=== PATIENT | male | born 1930 | race Caucasian/White ===

== ENCOUNTER 2019-07-28 06:55 | Day surgery (SDC) | payer MEDICARE ==
[~2019-07-28 06:55] MED LIST: CEFAZOLIN 2 Gram 2 GM/50 ML BAG IVPB ONE; CELECOXIB 100 MG CAPSULE PO ONE; FAMOTIDINE 20MG TABLET PO ONE; MECLIZINE 25 MG TABLET PO ONE; METOCLOPRAMIDE 10 MG TABLET PO ONE; VANCOMYCIN 1GM/200ML PREMIX 1 GM/200 ML PIGGYBACK IVPB ONE
[2019-07-28] MEDS ORDERED: DEXAMETHASONE 4 MG/ML 1ML VIAL IVP ONE (06:56)
[2019-07-28] MEDS ORDERED: MIDAZOLAM HCL 2MG/2ML VIAL IV ONE (06:56)
[2019-07-28] MEDS ORDERED: LIDOCAINE 2% MDV (20MG/ML) 20ML VIAL IV ONE (06:56)
[2019-07-28] MEDS ORDERED: ROPIVACAINE HCL (NAROPIN) /PF 5MG/ML 20ML VIAL IV ONE (06:56)
[2019-07-28] MEDS ORDERED: PROPOFOL 10 MG/ML VIAL IV ONE (06:56)
[2019-07-28] MEDS ORDERED: 0.9 % SODIUM CHLORIDE 1000ML 1,000 ML IV ONE ×2 (07:40→10:17)
[2019-07-28 08:07] LABS: ANTIBODY SCREEN NEGATIVE (NEGATIVE)
[2019-07-28 08:40] LABS: ABO GROUP A; RH TYPE NEGATIVE
[2019-07-28] MEDS ORDERED: BUPIVACAINE 0.5% W/EPI MPF 30 ML VIAL SQ ONE (09:27)
[2019-07-28] MEDS ORDERED: TRANEXAMIC ACID 1,000 MG/10 ML ML IU ONE (09:28)
[2019-07-28] MEDS ORDERED: TRANEXAMIC ACID 1,000 MG/10 ML ML IV ONE (09:28)
[2019-07-28] MEDS ORDERED: ACETAMINOPHEN W/ CODEINE 300MG/60MG TABLET PO PRN ×2 (10:19)
[2019-07-28] MEDS ORDERED: NALOXONE 0.4 MG/1 ML VIAL IVP PRN (10:19)
[2019-07-28] MEDS ORDERED: MAGNESIUM HYDROXIDE 30 ML UDC PO PRN (10:19)
[2019-07-28] MEDS ORDERED: ACETAMINOPHEN 325 MG TAB PO PRN (10:19)
[2019-07-28] MEDS ORDERED: ONDANSETRON HCL IV 4 MG/2 ML VIAL IVP PRN (10:19)
[2019-07-28] MEDS ORDERED: BISACODYL 10 MG SUPP RC PRN (10:19)
[2019-07-28] MEDS ORDERED: TRAMADOL HCL 50 MG TABLET PO PRN (10:19)
[2019-07-28] MEDS ORDERED: DIPHENHYDRAMINE HCL 25 MG CAPSULE PO PRN (10:19)
[2019-07-28] MEDS ORDERED: ZOLPIDEM TARTRATE 5 MG TABLET PO PRN (10:19)
[2019-07-28] MEDS ORDERED: AL HYDROX/MAG HYDROX 30ML UD PO PRN (10:19)
[2019-07-28] MEDS ORDERED: KETOROLAC 30 MG/ML VIAL IVP ONE (10:19)
[2019-07-28] MEDS ORDERED: HYDROMORPHONE HCL 2 MG/ML VIAL IM PRN (10:19)
[2019-07-28] MEDS ORDERED: HYDROCODONE/APAP 5/325MG TABLET PO PRN ×2 (10:19)
[2019-07-28] MEDS ORDERED: FLUTICASONE PROPIONATE 50MCG NASAL 16 GM BTL PRN (11:09)
[2019-07-28] MEDS ORDERED: LORATADINE 10 MG TABLET PO PRN (11:09)
[2019-07-28] MEDS ORDERED: CALCIUM CARBONATE 500 MG TAB.CHEW PO PRN (11:10)
[2019-07-28] MEDS ORDERED: POTASSIUM CHLORIDE/D5-0.9%NACL 20 MEQ/1,000 ML BAG IV SCH (11:15)
[2019-07-28] MEDS: 0.9 % SODIUM CHLORIDE 1000ML 1,000 ML IV SCH ×2 (11:44→23:30)
--- NOTE | 2019-07-28 14:33 | Rehab Evaluation ---
Patient Information - Patient Information Diagnosis: DJD R knee Ordered Treatment: PT Evaluate and Treat Status: Initial Evaluation Surgery: Yes (RTKA) Date of Surgery: 07/28/19 Past Medical/Surgical Hx: PAST MEDICAL/SURGICAL HISTORY Past Surgical History LTKA THOMAS HERNIA REPAIRS LUMBAR SX X'S 2 CATARACTS C SCOPES RIGHT RTC REPAIR PMH - Respiratory Hx Respiratory Disorders Yes Comment: ALLERGIES PMH - Cardiovascular Hx Cardiovascular Disorders Yes Hx Hypertension Yes Exercise Tolerance Good PMH - Neuro Hx Neurological Disorders Yes Hx Dizziness Yes: AT TIMES R/T DEHYDRATION PMH - GI Hx Gastrointestinal Disorders Yes Hx Gastroesophageal Reflux Yes Hx Obstructive Bowel Yes: X'S 3 RESOLVED WITHOUT SX PMH - Hx Genitourinary Disorders Yes Hx Prostate Problems Yes: BPH 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 The patient 's bathroom is equipped with a tub/shower combination, grab bars, handheld shower, shower bench, elevated toilet, commode seat with handles. The patient has a front wheeled walker and single point cane.) Precautions: [place], Fall, Other (WBAT on the R LE) - Time With Patient Total Time Spent With Patient (Min): 30 Treatment Procedures: Detail (Initial Evaluation low complexity) Subjective Information - Subjective Information Per Patient (The patient had minimal complaints of R knee pain but did not rate his pain using 0-10 scale.) Objective Data - Mental Status Patient Orientation: Oriented x3 - Visual Perception Appears within normal limits for therapeutic activities - ROM Not within normal limits (R knee AROM was limited as to be expected s/p surgery. All other AROM was WNL.) - Strength/Tone Not within normal limits (LE strength was not formally tested however was functional ie: patient was able to lift R LE in and out of bed.) - Bed Mobility Independent (Independent with supine to and from sit transfer and scooting up in bed.) - Transfers Independent (The patient was independent with sit to and from stand transfer and toilet transfer with use of grab bar.) - Balance Balance Sitting: Good Balance Standing: Good - Sensation Intact - Gait Detail (The patient ambulated with front wheeled walker a distance of 120 feet x 1 WBAT on R LE with assist of one to handle equipment.) Therapy Assessment - Therapy Assessment Detail (The patient was independent with bed mobility, transfers and ambulation. Feel the patient will progress well with mobility.) Problem List - Problem List Physical Therapy Problem List: Detail (Limited R knee AROM and decreased R LE strength s/p surgery.) Goals - Goals Physical Therapy Goals: 1) The patient will ambulate on stairs using proper technique with supervision for safety. 2) The patient will be independent with TKA HEP. Prognosis - Prognosis Good Plan - Plan Physical Therapy Plan: 1-2 PT sessions for gait training on stairs and instruction in HEP.
[2019-07-28] MEDS: HYDROCODONE/APAP 10/325 TABLET PO PRN ×3 (14:51→22:09)
[2019-07-28] MEDS: CEFAZOLIN 2 Gram 2 GM/50 ML BAG IVPB SCH (18:11)
[2019-07-28] MEDS ORDERED: AMLODIPINE BESYLATE 5MG TAB PO SCH (22:00)
[2019-07-28] MEDS ORDERED: MAGNESIUM OXIDE 400 MG TABLET PO SCH (22:00)
[2019-07-28] MEDS: RANITIDINE HCL 150 MG TABLET PO SCH (22:08)
[2019-07-28] MEDS: DOCUSATE SODIUM 100 MG CAPSULE PO SCH (22:08)
[2019-07-29] MEDS: CEFAZOLIN 2 Gram 2 GM/50 ML BAG IVPB SCH ×2 (01:58→10:07)
[2019-07-29] MEDS: 0.9 % SODIUM CHLORIDE 1000ML 1,000 ML IV SCH ×2 (03:15→10:48)
[2019-07-29] MEDS: HYDROCODONE/APAP 10/325 TABLET PO PRN ×2 (06:30→11:58)
[2019-07-29 06:57] LABS: HEMOGLOBIN 9.1 gm/dl (14.0-18.0)
[2019-07-29 07:13] LABS: CREATININE 1.7 mg/dL (0.7-1.2)
--- NOTE | 2019-07-29 08:07 | Rehab Evaluation ---
Patient Information - Patient Information Diagnosis: DJD R knee Ordered Treatment: OT Evaluate and Treat Status: Initial Evaluation Surgery: Yes (RTKA) Date of Surgery: 07/28/19 Past Medical/Surgical Hx: PAST MEDICAL/SURGICAL HISTORY Past Surgical History LTKA THOMAS HERNIA REPAIRS LUMBAR SX X'S 2 CATARACTS C SCOPES RIGHT RTC REPAIR PMH - Respiratory Hx Respiratory Disorders Yes Comment: ALLERGIES PMH - Cardiovascular Hx Cardiovascular Disorders Yes Hx Hypertension Yes Exercise Tolerance Good PMH - Neuro Hx Neurological Disorders Yes Hx Dizziness Yes: AT TIMES R/T DEHYDRATION PMH - GI Hx Gastrointestinal Disorders Yes Hx Gastroesophageal Reflux Yes Hx Obstructive Bowel Yes: X'S 3 RESOLVED WITHOUT SX PMH - Hx Genitourinary Disorders Yes Hx Prostate Problems Yes: BPH 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 He and spouse share laundry tasks.) Social History: Detail (The patient lives with spouse in a 2 story house with 5 steps at the entrance and one handrail. He reports they stay on the main level. The patient 's bathroom is equipped with a tub/shower combination, multiple grab bars, handheld shower, shower bench, elevated toilet and commode seat with handles. The patient has a front wheeled walker and single point cane.) Precautions: [place], Fall, Other (WBAT on the R LE) - Time With Patient Total Time Spent With Patient (Min): 40 Treatment Procedures: Detail (OT eval low complexity) Subjective Information - Subjective Information Per Patient Objective Data - Pain Pain Present: Yes (03/27) - Mental Status Patient Orientation: Oriented x3 - Visual Perception Appears within normal limits for therapeutic activities (Pt wears glasses at all times.) - ROM Within normal limits ([place] UE AROM WNL) - Strength/Tone Within normal limits ([place] UE strength WNL) - Coordination Appears within normal limits for therapeutic activities - Bed Mobility Independent (Ind with supine to sit) - Transfers Independent (Ind with sit to stand from EOB) - Balance Balance Sitting: Good Balance Standing: Good - Sensation Intact - Gait Detail (Pt ambulating in hallway with 2 wheeled walker and SBA) - ADL's/IADL's Detail (Pt educated and able to demonstrate learning of modified LE dressing t echniques including doffing briefs and slipper socks and donning jay jay sock (with assist), boxer shorts, sweat pants and slip on shoes. Reviewed kitchen and shower safety and modifications as well as modified laundry techniques, pt verbalized understanding and reports spouse will be assist as needed.) Therapy Assessment - Therapy Assessment Detail (Pt is safe and Ind with modified LE dressing techniques) Problem List - Problem List Physical Therapy Problem List: Detail (Limited R knee AROM and decreased R LE strength s/p surgery.) Occupational Therapy Problem List: Detail (No current IP OT problems identified) Goals - Goals Physical Therapy Goals: 1) The patient will ambulate on stairs using proper technique with supervision for safety. 2) The patient will be independent with TKA HEP. Occupational Therapy Goals: No current IP OT goals identified. Prognosis - Prognosis Good Plan - Plan Physical Therapy Plan: 1-2 PT sessions for gait training on stairs and instruction in HEP. Occupational Therapy Plan: No further IP OT recommended. Thank you for this referral.
--- NOTE | 2019-07-29 08:31 | Operative Note ---
DATE OF SURGERY: 07/28/2019 PREOPERATIVE DIAGNOSIS: End-stage arthrosis of the right knee. POSTOPERATIVE DIAGNOSIS: End-stage arthrosis of the right knee. OPERATION: Cemented right total knee arthroplasty using [employer]orna II components with a size 6 cobalt chrome femur, a size 5 stemmed tibia baseplate, an 11 mm lipped tibial insert, and a 35 mm all-plastic patella. STAFF SURGEON: Chuck Herndon MD ANESTHESIA: Spinal. PREPARATION: Chloraprep. INDIVIDUAL CONSIDERATIONS: None. CLIN NURSE: Mrs. Jacquelyn Browne PROCEDURE: The patient was taken to the operating room, placed supine on the operating room table. He had a successful induction of a spinal anesthetic. The right lower extremity was prepped and draped in the usual fashion. The limb was elevated and tourniquet was inflated to 250 mmHg. The patient had a midline approach to the knee. Sharp dissection carried down through skin and subcutaneous tissue. Small veins were coagulated with a Bovie. A medial arthrotomy was performed. The patella was everted and the knee was flexed. The patient had exposed bone in the medial compartment with bone loss and in the patellofemoral compartment. Fat pad was resected, ACL was sacrificed, and provisional anterior meniscectomies were performed. The capsule was released from the medial proximal tibia. The initial femoral library assistant hole was then made freehand. The intramedullary femoral cutting jig was placed. It was cut in 7.0 degrees of valgus and adjusted for rotation and secured with pins for a 10 mm resection. The initial transverse cut was then made. The skin guide was placed in the anterior and posterior library assistant holes. It was found that a size 6 would be appropriate. The anterior and posterior cuts followed by chamfer cuts were made. Osteophytes removed, and a size 6 trial was placed and found to fit well. The tibia was brought forward, and the remainder of the meniscal remnants removed with a Bovie. The extraarticular tibial cutting jig was placed. It was cut in neutral with a 3-degree AP slope. Care was taken to adjust for rotation and flexion using the extraarticular alignment guide and bony landmarks. It was set for a 9 mm resection keyed off the high lateral side and secured with pins. When cutting the tibia, care was taken to preserve the PCL insertion on the tibia. After removing osteophytes, I could fit a size 5 baseplate. It was adjusted for rotation and secured with pins. With an 11 mm trial and femoral trial, there was excellent motion and stability, ligamentous balance, and rotation alignment were thought to be normal. Femoral library assistant holes were impacted and tri-flange tibial stamp was impacted, and these trial components were removed. The patient had a thick patella and roughly 9 mm of bone was removed freehand. I was easily able to fit a 35 patella. The 3 library assistant holes were drilled. The tourniquet was let down briefly to get bleeders posteriorly and then placed back up again. The knee was then thoroughly irrigated out with pulsatile Betadine and saline to remove any visual or palpable debris. Bony surfaces were then dried. A size 5 stemmed tibia baseplate was cemented into place followed by impaction of the 11 mm lipped tibial insert followed by cementing in the size 6 cobalt chrome femur followed by cementing in the 35 mm patella. The implant surfaces were compressed, excess cement was removed. After the cement had set, there was excellent motion and stability, ligamentous balance, rotation alignment, and patellofemoral tracking were normal. No lateral release was required. After thorough irrigation, tourniquet was let down. Hemostasis was obtained with a Bovie. The skin, subcu, and periosteum were infiltrated with 30 mL of 0.5% Marcaine with epinephrine. After irrigation, the capsule was then closed with a running #2 quill, subcu was closed in layers with running 0 quill, skin was closed with luis. The patient did receive 1 g of tranexamic acid preoperatively. I mixed 1 g of tranexamic acid with 30 mL of saline and injected it into the knee through a sterile 18-gauge needle, and a sterile bulky compressive WANDA-type dressing was applied. The patient was taken back to the recovery room in good condition. There were no complications. EDGAR
[2019-07-29] MEDS ORDERED: FERROUS SULFATE 325 MG TAB PO SCH (10:00)
[2019-07-29] MEDS ORDERED: RIVAROXABAN 10 MG TABLET PO SCH (10:00)
[2019-07-29] MEDS ORDERED: CALCIUM CARB/VITAMIN D 500MG/200IU PO SCH (10:00)
[2019-07-29] MEDS ORDERED: LISINOPRIL 5 MG TABLET PO SCH (10:00)
[2019-07-29] MEDS ORDERED: ASCORBIC ACID 500 MG TAB PO SCH (10:00)
--- NOTE | 2019-07-29 10:02 | Physical Therapy Tx Note ---
Physical Therapy Tx Note - Treatment Note Tolerated: Good Total Time Spent With Patient: 20 Physical Therapy Tx Note: Detail (The patient was up in chair when PT arrived. The patient ambulated with front wheeled walker 100 feet x 1 WBAT on the R LE independently. The patient ambulated on stairs with use of one railing and cue using proper technique with supervision for safety. The patient completed TKA HEP which included heel slides seated and supine, ankle pumps, gluteal sets, quad sets, hamstring sets and SLR. The patient has met all inpatient goals and is discharged from inpatient PT.) Physical Therapy Problem List: Detail (Limited R knee AROM and decreased R LE strength s/p surgery.) Physical Therapy Goals: 1) The patient will ambulate on stairs using proper technique with supervision for safety. (Goal Met). 2) The patient will be independent with TKA HEP. (Goal Met) Physical Therapy Plan: The patient has met all inpatient PT goals and is discharged from PT. The patient is to continue with Home PT.
[2019-07-29] MEDS: RANITIDINE HCL 150 MG TABLET PO SCH (10:05)
[2019-07-29] MEDS: DOCUSATE SODIUM 100 MG CAPSULE PO SCH (10:05)
== END 2019-07-29 13:00 | disposition home health service (06) ==
LOC: SUR 06:55 → MEDSURG 11:06 → SUR 07-29 13:00
PROVIDERS: ATTEND Orthopaedic Surgery
DX: M17.11 Unilateral primary osteoarthritis, right knee (principal); I10 Essential (primary) hypertension; N40.0 Benign prostatic hyperplasia without lower urinary tract symptoms; K21.9 Gastro-esophageal reflux disease without esophagitis; M85.80 Other specified disorders of bone density and structure, unspecified site; N28.89 Other specified disorders of kidney and ureter
CPT/HCPCS: 27447; 01402; 64447; 85018; 85014; 80048; 86900; 86901; 86850; J1885; J0690 ×2; J3490 ×2; J2795; J3370; 76942; C1776; J7030